=== PATIENT | female | born 2000 | race Two or more races ===

== ENCOUNTER 2022-11-19 21:37 | Emergency (ER) | payer OTHER ==
[~2022-11-19] VITALS: Ht 160 cm; Wt 61.2 kg
[2022-11-20] MEDS ORDERED: ONDANSETRON HCL4 MG PO (03:27)
[2022-11-20] MEDS ORDERED: DUI500 PO (03:27)
[2022-11-20] MEDS ORDERED: PEPCID AC10 MG PO (03:27)
== END 2022-11-20 04:36 | disposition home or self-care (01) ==
LOC: ER 21:37
DX: O21.0 Mild hyperemesis gravidarum (principal); O23.41 Unspecified infection of urinary tract in pregnancy, first trimester; N39.0 Urinary tract infection, site not specified; Z3A.08 8 weeks gestation of pregnancy; Z91.013 Allergy to seafood